=== PATIENT | female | born 1970 | race Caucasian/White ===

== ENCOUNTER 2023-06-14 15:13 | Emergency (ER) | payer OTHER ==
[~2023-06-14] VITALS: Ht 162.6 cm; Wt 74.8 kg
[2023-06-14 15:20] VITALS: BP 120/85
== END 2023-06-14 17:18 | disposition home or self-care (01) ==
LOC: ER 15:13
DX: S80.02XA Contusion of left knee, initial encounter (principal); W10.8XXA Fall (on) (from) other stairs and steps, initial encounter; Z88.8 Allergy status to other drugs, medicaments and biological substances
CPT/HCPCS: 73562-LT; J1885

== ENCOUNTER → 2024-10-01 | Outpatient (CLI) | payer OTHER | END | disposition home or self-care (01) | LOC: LAB SHORT 11:55 → LAB 11:55 | DX: R35.0 Frequency of micturition (principal) | CPT/HCPCS: 87077; 87086; 87186 ==